=== PATIENT | male | born 1950 | race African-American/Black ===

== ENCOUNTER 2024-02-17 17:48 | Emergency (ER) | payer SELFPAY ==
[~2024-02-17] VITALS: Ht 193 cm; Wt 105.0 kg
[2024-02-17 17:50] VITALS: BP 118/69; PULSE 82; RESP 18; O2SAT 99
[2024-02-17 21:58] VITALS: TEMP 97.9
[2024-02-17] MEDS: ACETAMINOPHEN 325MG TABLET PO ONE (21:58)
[2024-02-17] MEDS: LIDOCAINE HCL/PF 1% 10 MG/ML 5ML VIAL INFIL ONE (21:58)
[2024-02-17] MEDS: BACITRACIN ZINC OINT UDPKT TOP ONE (21:59)
[2024-02-17] MEDS ORDERED: ACET-2708 PO (23:06)
== END 2024-02-17 23:26 | disposition home or self-care (01) ==
LOC: ER 17:48
DX: S01.01XA Laceration without foreign body of scalp, initial encounter (principal); E78.00 Pure hypercholesterolemia, unspecified; E11.9 Type 2 diabetes mellitus without complications; I10 Essential (primary) hypertension; W18.39XA Other fall on same level, initial encounter; Y93.89 Activity, other specified; Y92.89 Other specified places as the place of occurrence of the external cause; Y99.8 Other external cause status
CPT/HCPCS: 70450; 99284; J3490; Z7610